=== PATIENT | male | born 1960 | race Two or more races ===

== ENCOUNTER 2023-06-15 19:22 | Inpatient (IN) | payer OTHER ==
[~2023-06-15] VITALS: Ht 175.3 cm; Wt 117.9 kg
[2023-06-15] MEDS ORDERED: XIFAXAN550 MG PO (19:42)
[2023-06-15] MEDS ORDERED: PROPANOL PO (19:43)
[2023-06-15] MEDS ORDERED: LASIX40 MG PO (19:43)
[2023-06-15] MEDS ORDERED: ALDACTONE25 MG PO (19:43)
[2023-06-15] MEDS ORDERED: KRISTALOSE10 GM PO (19:44)
[2023-06-15] MEDS ORDERED: AVAPRO75 MG PO (19:44)
[2023-06-15] MEDS ORDERED: FOLIC ACID0.8 M1 PO (19:44)
[2023-06-15] MEDS ORDERED: BUPROPION XL450 MG PO (19:44)
--- NOTE | 2023-06-15 19:45 | NUR ---
PACIENTE EN AMBULANCIA LETARGICO EN COMPANIA DE FAMILIARES QUIENES VERBALIZAN LLEVA DESDE REGINALDO LETARGICO, CON ABDOMEN DISTENDIDO Y CON DIFICULTAD RESPIRATORIOA. PACIENTE ES TRAIDO EN AMBULANCIA CON NONREBREATHING MASK SAT 100%. SE COLECTAN MUESTRAS DE LABORATORIO, SE CANALIZA X2, BAJO MEDIDAS ASEPTICAS. SE CONECTA A MONITOR CARDICO Y OXIMETRIA DE PUL[place], SE LE REALIZA EKG, SE LE PRESENTA A DR CARTER, SE LLAMA A PERSONAL DE TERAPIA RESPIRATORIA. SE LE COLOCA CASTILLO CATETER BAJO MEDIDAS ASEPTICAS Y ESTERILES.
--- NOTE | 2023-06-15 21:09 | NUR ---
PERSONAL DE TERAPIA RESP LE COLOCA CANULA NASAL A 3LT.
--- NOTE | 2023-06-15 23:59 | NUR ---
SE RECIBE PTE EN CAMA CON CANULA NASAL SIN ENROJECIMIENTO EN EVELIA, PACIENTE LETARGICO CONECTADO A MONITOR CADIACO, CANALIZACION #18 Y #20 EN MANO DERECHA Y MANO IZQUIERDA, CON FOLLEY BAJANDO A GRAVEDAD COLOR AMARILLO BOBBI. ABDOMEN DEPRESIBLE AL TACTO Y CON PERISTARSIS PRESENTE, EXTREMIDADES JOEL DE EDEMA Y ERITEMA. SE REALIZAN VITALES Y SE DOCUMENTAN EN SISTEMA.
--- NOTE | 2023-06-16 04:29 | NUR ---
SE EDUCA A FAMILIARES SOBRE PROCESO A RECIBIR EN EL AREA POR ORDEN DE , SE LE COLOCA NASOGASTRICO POR FOSA NASAL IZQUIERDA, SE VERIFFICAD QUE HUONG POSICIONADO EL MISMO, SE LE ADMINISTRA MEDICAMENTO TERESITA ORDEN MEDICA, PACIENTE NO PRESENTA REACCION ADVERSA A MEDICAMENTOS SE CANDICE PACEINTE BAJO OBSERVACION POR CUALQUIER CAMBIO SIGNIFICATIVO, PACIENTE COMPLETAMENTE LETARGICO.
--- NOTE | 2023-06-16 07:13 | NUR ---
SE RECIBE PACIENTE LETARGICO EN [place] EN CAMA CON LA CABECERA A 30 GRADOS. CONECTADO A MONITOR CARDIACO Y OXIMETRIA DE PUL[place]. EL MISMO CON SHANIQUE CANALIZACION PATENTE. CASTILLO DRENANDO GRAVEDAD ORINA AMARILLA JAMIE SIN HEMATURIA. CON TUBO NGT POR FOSA IZQUIERDA PATENTE. EL MISMO ACOMPANADO DE FAMILIAR. EL MISMO CON COVID +.
== END 2023-06-27 09:23 | disposition expired | DRG 441 ==
LOC: ER 19:22 → ICU-2 06-16 11:31 → ICU 06-16 11:31 → MEDJ 06-25 15:44
PROVIDERS: General Practice; Internal Medicine Nephrology; ADMIT Internal Medicine; ATTEND Internal Medicine
PROC: BW21ZZZ Computerized Tomography (CT Scan) of Abdomen and Pelvis (ICD-10-PCS; 2023-06-15)
PROC: BB24ZZZ Computerized Tomography (CT Scan) of Bilateral Lungs (ICD-10-PCS; 2023-06-15)
PROC: 4A12X4Z Monitoring of Cardiac Electrical Activity, External Approach (ICD-10-PCS; 2023-06-15)
PROC: 8E0ZXY6 Isolation (ICD-10-PCS; principal; 2023-06-16)
PROC: B030ZZZ Magnetic Resonance Imaging (MRI) of Brain (ICD-10-PCS; 2023-06-16)
PROC: 0DH67UZ Insertion of Feeding Device into Stomach, Via Natural or Artificial Opening (ICD-10-PCS; 2023-06-16)
PROC: 3E0G76Z Introduction of Nutritional Substance into Upper GI, Via Natural or Artificial Opening (ICD-10-PCS; 2023-06-16)
PROC: 3E0F7GC Introduction of Other Therapeutic Substance into Respiratory Tract, Via Natural or Artificial Opening (ICD-10-PCS; 2023-06-17)
PROC: 02HV33Z Insertion of Infusion Device into Superior Vena Cava, Percutaneous Approach (ICD-10-PCS; 2023-06-21)
PROC: 5A0945A Assistance with Respiratory Ventilation, 24-96 Consecutive Hours, High Flow/Velocity Cannula (ICD-10-PCS; 2023-06-23)
DX: K76.82 Hepatic encephalopathy (principal); K76.7 Hepatorenal syndrome; U07.1 COVID-19; N17.8 Other acute kidney failure; B37.49 Other urogenital candidiasis; E87.0 Hyperosmolality and hypernatremia; D68.8 Other specified coagulation defects; D69.59 Other secondary thrombocytopenia; K74.69 Other cirrhosis of liver; B96.1 Klebsiella pneumoniae [K. pneumoniae] as the cause of diseases classified elsewhere; B96.89 Other specified bacterial agents as the cause of diseases classified elsewhere; R41.82 Altered mental status, unspecified; Z66 Do not resuscitate
CPT/HCPCS: 70544